=== PATIENT | male | born 1965 | race American Indian/Alaskan Native ===

== ENCOUNTER 2017-03-27 23:45 | Emergency (ER) | payer OTHER ==
[2017-03-28] MEDS ORDERED: Sodium Chloride 0.9% 1,000 ML IV ONE (00:50)
[2017-03-28] MEDS ORDERED: Ondansetron 4 MG/2 ML SDV IV ONE (00:50)
[2017-03-28] MEDS ORDERED: Ketorolac 30 MG/ML SDV IVPUSH ONE (00:52)
[2017-03-28 01:29] LABS: CHLORIDE,CL 98 mmol/L (101-111); SODIUM,NA 138 mmol/L (135-145)
--- NOTE | 2017-03-28 01:47 | EDM.PDOC ---
ED HPI GENERAL MEDICAL PROBLEM - General Chief Complaint: Abdominal Pain Stated Complaint: GALLBLADDER ATTACK Time Seen by Provider: 03/28/17 00:45 Source of Information: Reports: Patient History Limitations: Reports: No Limitations - History of Present Illness INITIAL COMMENTS - FREE TEXT/NARRATIVE: c/o RUQ pain after eating greasy potatoes tonight, has had similar episodes in past, no follow up with primary care. Vomited x 1 rates pain 8/10 Onset: Sudden Location: Reports: Abdomen Quality: Reports: Sharp Associated Symptoms: Reports: Nausea/Vomiting Right Upper Abdomen Pain Score (Numeric/FACES): 9 - Related Data Allergies Allergy/AdvReac Type Severity Reaction Status Date / Time No Known Allergies Allergy Verified 03/28/17 00:43 Home Meds: Home Meds Hydrochlorothiazide 50 mg PO DAILY 03/28/17 [History] Losartan [Cozaar] 100 mg PO DAILY 03/28/17 [History] Past Medical History Cardiovascular History: Reports: Hypertension Social & Family History - Tobacco Use Smoking Status *Q: Never Smoker Second Hand Smoke Exposure: No - Recreational Drug Use Recreational Drug Use: No ED ROS GENERAL - Review of Systems Review Of Systems: See Below Constitutional: Reports: No Symptoms HEENT: Reports: No Symptoms Respiratory: Reports: No Symptoms Cardiovascular: Reports: No Symptoms Endocrine: Reports: No Symptoms GI/Abdominal: Reports: Abdominal Pain, Vomiting : Reports: No Symptoms Musculoskeletal: Reports: No Symptoms Skin: Reports: No Symptoms Neurological: Reports: No Symptoms ED EXAM, GI/ABD - Physical Exam Exam: See Below Exam Limited By: No Limitations General Appearance: Alert, Moderate Distress, Obese Eyes: Bilateral: EOMI Ears: Normal External Exam Nose: Normal Inspection, Nasal Flaring Head: Atraumatic, Normocephalic Neck: Normal Inspection, Full Range of Motion Respiratory/Chest: No Respiratory Distress, Lungs Clear, Normal Breath Sounds Cardiovascular: Normal Peripheral Pulses, Regular Rate, Rhythm GI/Abdominal: Normal Bowel Sounds, Soft, Tenderness (epigastric, mild RUQ) Back Exam: Normal Inspection. No: CVA Tenderness (L), CVA Tenderness (R) Extremities: Normal Inspection Neurological: Alert, Oriented Psychiatric: Anxious Skin Exam: Warm, Dry, Intact, Normal Color Course - Vital Signs Last Recorded V/S: Last Vital Signs Temp 96.6 F 03/28/17 00:37 Pulse 65 03/28/17 02:25 Resp 18 06/14/17 02:25 BP 156/93 H 03/28/17 02:25 Pulse Ox 100 03/28/17 02:25 - Orders/Labs/Meds Labs: Laboratory Tests 03/28/17 03/28/17 03/28/17 Range/Units 01:00 01:00 01:00 WBC 10.6 H (5.0-10.0) 10^3/uL RBC 4.66 (4.6-6.2) 10^6/uL Hgb 14.3 (14.0-18.0) g/dL Hct 41.2 (40.0-54.0) % MCV 88.4 (80-100) fL MCH 30.7 (27.0-34.0) pg MCHC 34.7 (33.0-35.0) g/dL Plt Count 293 (150-450) 10^3/uL Neut % (Auto) 87.7 H (42.2-75.2) % Lymph % (Auto) 8.4 L (20.5-50.1) % Rice % (Auto) 3.6 (2-8) % Eos % (Auto) 0.1 L (1.0-3.0) % Baso % (Auto) 0.2 (0.0-1.0) % Sodium 138 (135-145) mmol/L Potassium 3.4 L (3.6-5.0) mmol/L Chloride 98 L (101-111) mmol/L Carbon Dioxide 29.0 (21.0-31.0) mmol/L Anion Gap 14.4 BUN 16 (7-18) mg/dL Creatinine 1.0 (0.6-1.3) mg/dL Est Cr Clr Drug Dosing 92.26 mL/min Estimated GFR (MDRD) > 60 BUN/Creatinine Ratio 16.00 Glucose 144 H (74-105) mg/dL Calcium 9.2 (8.4-10.2) mg/dl Total Bilirubin 0.5 (0.2-1.0) mg/dL AST 40 (10-42) IU/L ALT 31 (10-60) IU/L Alkaline Phosphatase 85 (42-121) IU/L C-Reactive Protein 0.6 (0.0-1.3) mg/dL Total Protein 8.5 H (6.7-8.2) g/dl Albumin 4.3 (3.2-5.5) g/dl Globulin 4.2 Albumin/Globulin Ratio 1.02 Amylase 73 (28-100) U/L Lipase 29 (22-51) U/L Urine Color (YELLOW) Urine Appearance (CLEAR) Urine pH (5.0-9.0) Ur Specific [place] (1.005-1.030) Urine Protein (NEGATIVE) Urine Glucose (UA) (NEGATIVE) Urine Ketones (NEGATIVE) Urine Occult Blood (NEGATIVE) Urine Nitrite (NEGATIVE) Urine Bilirubin (NEGATIVE) Urine Urobilinogen (0.2-1.0) mg/dL Ur Leukocyte Esterase (NEGATIVE) Urine RBC /HPF Urine WBC (0-5/HPF) /HPF Ur Epithelial Cells /HPF Urine Bacteria (0-FEW/HPF) /HPF Urine Mucus /LPF 03/28/17 Range/Units 01:49 WBC (5.0-10.0) 10^3/uL RBC (4.6-6.2) 10^6/uL Hgb (14.0-18.0) g/dL Hct (40.0-54.0) % MCV (80-100) fL MCH (27.0-34.0) pg MCHC (33.0-35.0) g/dL Plt Count (150-450) 10^3/uL Neut % (Auto) (42.2-75.2) % Lymph % (Auto) (20.5-50.1) % Rice % (Auto) (2-8) % Eos % (Auto) (1.0-3.0) % Baso % (Auto) (0.0-1.0) % Sodium (135-145) mmol/L Potassium (3.6-5.0) mmol/L Chloride (101-111) mmol/L Carbon Dioxide (21.0-31.0) mmol/L Anion Gap BUN (7-18) mg/dL Creatinine (0.6-1.3) mg/dL Est Cr Clr Drug Dosing mL/min Estimated GFR (MDRD) BUN/Creatinine Ratio Glucose (74-105) mg/dL Calcium (8.4-10.2) mg/dl Total Bilirubin (0.2-1.0) mg/dL AST (10-42) IU/L ALT (10-60) IU/L Alkaline Phosphatase (42-121) IU/L C-Reactive Protein (0.0-1.3) mg/dL Total Protein (6.7-8.2) g/dl Albumin (3.2-5.5) g/dl Globulin Albumin/Globulin Ratio Amylase (28-100) U/L Lipase (22-51) U/L Urine Color Yellow (YELLOW) Urine Appearance Slightly cloudy (CLEAR) Urine pH 6.0 (5.0-9.0) Ur Specific [place] 1.025 (1.005-1.030) Urine Protein Trace H (NEGATIVE) Urine Glucose (UA) Negative (NEGATIVE) Urine Ketones Trace H (NEGATIVE) Urine Occult Blood Negative (NEGATIVE) Urine Nitrite Negative (NEGATIVE) Urine Bilirubin Negative (NEGATIVE) Urine Urobilinogen 2.0 H (0.2-1.0) mg/dL Ur Leukocyte Esterase Negative (NEGATIVE) Urine RBC 0-5 /HPF Urine WBC 0-5 (0-5/HPF) /HPF Ur Epithelial Cells Few /HPF Urine Bacteria Moderate H (0-FEW/HPF) /HPF Urine Mucus Moderate H /LPF Meds: Medications Discontinued Medications Generic Name Dose Route Start Last Admin Trade Name Freq PRN Reason Stop Dose Admin Hydrocodone Bitart/Acetaminophen Confirm 03/28/17 02:17 03/28/17 02:24 [place] 325-10 Mg Administered 03/28/17 02:18 Not Given Dose 1 tab .ROUTE .STK-MED ONE Hydrocodone Bitart/Acetaminophen 1 tab 03/28/17 02:17 [place] 325-10 Mg PO 03/28/17 02:18 .STK-MED ONE Sodium Chloride 1,000 mls @ 999 mls/hr 03/28/17 00:50 03/28/17 01:08 Normal Saline IV 03/28/17 01:50 999 mls/hr .BOLUS ONE Administration Ketorolac Tromethamine 30 mg 03/28/17 00:52 03/28/17 01:10 Toradol IVPUSH 03/28/17 00:53 30 mg ONETIME ONE Administration Ondansetron HCl 4 mg 03/28/17 00:50 03/28/17 01:08 Zofran IV 03/28/17 00:51 4 mg ONETIME ONE Administration Ondansetron HCl Confirm 03/28/17 02:17 03/28/17 02:24 Zofran Odt Administered 03/28/17 02:18 Not Given Dose 4 mg .ROUTE .STK-MED ONE Ondansetron HCl 4 mg 03/28/17 02:17 Zofran Odt PO 03/28/17 02:18 .STK-MED ONE - Re-Assessments/Exams Free Text/Narrative Re-Assessment/Exam: 03/28/17 01:41 patient sleeping. Pain improved. Departure - Departure Time of Disposition: 01:41 Disposition: Home, Self-Care 01 Condition: Good Clinical Impression: RUQ abdominal pain - Discharge Information Instructions: Low-Fat Diet for Pancreatitis or Gallbladder Conditions Forms: ED Department Discharge Additional Instructions: low fat bland diet follow up with primary care for gallbadder ultrasound
[2017-03-28] MEDS ORDERED: Acetaminophen/HYDROcodone 325-10 MG Tab PO ONE (02:17)
[2017-03-28] MEDS ORDERED: Ondansetron 4 MG Tab.DIS PO ONE (02:17)
[2017-03-28] MEDS ORDERED: Acetaminophen/HYDROcodone 325-10 MG Tab ONE (02:17)
[2017-03-28] MEDS ORDERED: Ondansetron 4 MG Tab.DIS ONE (02:17)
[2017-03-28 02:27] VITALS: BP 156/93
== END 2017-03-28 02:26 | disposition home or self-care (01) ==
LOC: DL.ED 23:45
DX: R10.11 Right upper quadrant pain (principal); I10 Essential (primary) hypertension; Z79.899 Other long term (current) drug therapy
CPT/HCPCS: 36415; 80053; 81001; 82150; 83690; 85025; 86140; 96361; 96374; 96375; 99284; A9270; J1885; J2405; J7030